=== PATIENT | female | born 1970 | race Caucasian/White ===

== ENCOUNTER 2020-09-24 16:50 | Emergency (ER) | payer OTHER ==
[2020-09-24 17:06] VITALS: BP 122/87; PULSE 91; TEMP 99.1; BMI 22.9
== END 2020-09-24 18:09 | disposition home or self-care (01) ==
LOC: JER 16:50
DX: J20.9 Acute bronchitis, unspecified (principal)
CPT/HCPCS: 71045-TC-FY; 87070; 87880; 99282-25; C9803; U0003

== ENCOUNTER 2022-12-08 18:54 | Emergency (ER) | payer BC, OTHER ==
[2022-12-08 19:03] VITALS: BP 122/83; PULSE 86; RESP 18; BMI 22.1
[2022-12-08 19:31] VITALS: TEMP 98.3
== END 2022-12-08 20:22 | disposition home or self-care (01) ==
LOC: JERFT 18:54
DX: R05.1 Acute cough (principal)
CPT/HCPCS: 0241U-QW; 71046-TC-FY; 99284-25